=== PATIENT | female | born 1975 | race Caucasian/White ===

== ENCOUNTER 2020-02-24 14:29 | Outpatient (CLI) | payer BC, SELFPAY ==
--- NOTE | ~2020-02-24 | US_ITS ---
EXAMINATION: US pelvic complete EXAM DATE: 02/24/2020 15:57 INDICATION: Left lower quadrant pain. TECHNIQUE: Pelvic transabdominal sonogram was performed. There are multiple grayscale and Doppler im ages available for interpretation. There is no prior study for comparison. FINDINGS: Uterus measures 7.0 x 3.7 x 5.3 cm, probably with a fibroid identified measuring 1.6 x 1.8 cm. The endometrial stripe is not well-defined, somewhat limited by transabdominal only technique. T here is no free pelvic fluid. Right adnexa: The ovary measures 3.4 x 2.2 x 3.8 cm and is morphologically normal. Ovarian vascular f low confirmed. Left adnexa: The ovary measures 3.8 x 2.7 x 2.8 cm, with several anechoic cystic regions likely physi ologic, largest measuring 3.3 x 2.0 x 2.4 cm. Ovarian vascular flow confirmed. IMPRESSION: 1. Several left ovarian cystic regions likely physiologic. 2. Endometrial thickness not well-defined, likely related to transabdominal technique. Reviewed, dictated and finalized at location B. IMPRESSION: 1. Several left ovarian cystic regions likely physiologic. 2. Endometrial thickness not well-defined, likely related to transabdominal tangela hnique.
--- NOTE | ~2020-02-24 | US_ITS ---
EXAMINATION: US venous doppler LE EXAM DATE: 02/24/2020 15:57 INDICATION: Left lower extremity pain. Acute pulmonary embolism. TECHNIQUE: Multiple grayscale, color flow and Doppler images of the lower extremity deep venous syste ms bilaterally were obtained and reviewed. There is no prior study for comparison. FINDINGS: Right side: The right common femoral, femoral and profunda veins demonstrate normal color flow, respi ratory variation, augmentation and compressibility. Compressibility, color flow confirmed within the right popliteal, posterior tibial, peroneal, and greater saphenous veins. Left side: The left common femoral, femoral and profunda veins demonstrate normal color flow, respira tory variation, augmentation and compressibility. Compressibility, color flow confirmed within the l eft popliteal, posterior tibial, peroneal, and greater saphenous veins. IMPRESSION: 1. No lower extremity deep venous thrombosis bilaterally. Reviewed, dictated and finalized at location B.
[2020-02-24 14:44] LABS: Basophils Percent Auto 0.3 % (0.2-1.2); Eosinophils Absolute Auto 0.1 K/mm3 (0-0.3); Eosinophils Percent Auto 1.1 % (0-4.4); Hematocrit 40.4 % (37.0-47.0); Hemoglobin 13.2 g/dL (12.0-15.0); Immature Granulocyte Absolute 0.01 K/mm3 (0.00-0.031); Immature Granulocyte Percent A 0.2 % (0-0.5); Lymphocytes Absolute Auto 2.22 K/mm3 (0.9-3.2); Mean Corpuscular HGB Conc 32.7 g/dl (32-36); Mean Corpuscular Hemoglobin 30.6 pg (26-34); Mean Corpuscular Volume 93.7 fl (80-100); Mean Platelet Volume 10.4 fl (7.4-10.4); Monocytes Absolute Auto 0.5 K/mm3 (0.1-0.6); Monocytes Percent Auto 7.4 % (2.6-8.5); Neutrophils Absolute Auto 3.7 K/mm3 (1.3-6.7); Platelet Count Result 226 k/mm3 (150-375); Red Blood Count 4.31 M/mm3 (4.2-5.4); Red Cell Distribution Width 11.9 % (11.5-14.5); White Blood Count 6.5 K/mm3 (4.5-10.0)
[2020-02-24 14:58] LABS: Alanine Aminotransferase 16 U/L (4-35); Albumin Level 4.3 g/dL (3.5-5.1); Alkaline Phosphatase 81 U/L (38-126); Aspartate Amino Transferase 27 U/L (14-36); Bilirubin,Total 0.4 mg/dL (0.2-1.3); Blood Urea Nitrogen 16 mg/dL (7-17); CRP < 0.5 mg/dL (<1.0); Calcium 8.9 mg/dL (8.4-10.2); Carbon Dioxide 26 mmol/L (22-30); Chloride 103 mmol/L (98-107); Estimated Glomerular Filt Rate > 60; Glucose 92 mg/dL (65-105); Potassium 4.2 mmol/L (3.4-5.0); Sodium 135 mmol/L (137-145)
[2020-02-24 15:13] LABS: Erythrocyte Sedimentation Rate 9 mm/hr (0-20)
== END 2020-02-24 14:30 | disposition home or self-care (01) ==
PROVIDERS: PCP Internal Medicine; Visit Provider Internal Medicine
DX: R10.32 Left lower quadrant pain (principal); I82.409 Acute embolism and thrombosis of unspecified deep veins of unspecified lower extremity; N83.202 Unspecified ovarian cyst, left side
CPT/HCPCS: 36415; 76856; 80053; 85025; 85652; 86140; 93970